=== PATIENT | male | born 1970 | race Caucasian/White ===

== ENCOUNTER → 2017-12-25 | Outpatient (CLI) | payer MEDICAID, OTHER ==
[2015-11-10 16:56] VITALS: BP 110/70
[2017-12-25 06:41] LABS: BILIRUBIN,URINE NEGATIVE (NEGATIVE); BLOOD/HEMOGLOBIN,URINE 3+ (NEGATIVE); GLUCOSE, URINE NEGATIVE (NEGATIVE); KETONES,URINE NEGATIVE (NEGATIVE); LEUKOCYTE ESTERASE ,URINE NEGATIVE (NEGATIVE); NITRITES,URINE NEGATIVE (NEGATIVE); PROTEIN,URINE 1+ (NEGATIVE); UROBILINOGEN,URINE NORMAL (NORMAL)
[2017-12-25 06:44] LABS: BASOPHILS % (AUTO) 0.4 % (0.2-1.0); EOSINOPHILS # (AUTO) 0.1 x10^3/uL (0.0-0.2); EOSINOPHILS % (AUTO) 1.8 % (0.9-2.9); HEMATOCRIT 42.6 % (42.0-54.0); HEMOGLOBIN 14.7 g/dL (13.5-18.0); LYMPHOCYTES # (AUTO) 3.4 X10^3/uL (1.3-2.9); LYMPHOCYTES % (AUTO) 44.5 % (21.0-51.0); MEAN CORPUSCULAR HEMOGLOBIN 33.8 pg (27.0-34.0); MEAN CORPUSCULAR HGB CONC 34.5 g/dL (33.0-35.0); MEAN PLATELET VOLUME 8.4 fL (7.4-11.0); MONOCYTES # (AUTO) 0.4 x10^3/uL (0.3-0.8); MONOCYTES % (AUTO) 5.8 % (0.0-13.0); NEUTROPHILS # (AUTO) 3.6 x10^3/uL (2.2-4.8); NEUTROPHILS % (AUTO) 47.5 % (42.0-75.0); PLATELET COUNT 216 X10^3/uL (150.0-450.0); RED BLOOD COUNT 4.34 X10^6/uL (4.7-6.0); RED CELL DISTRIBUTION WIDTH 13.3 % (11.6-16.5); WHITE BLOOD COUNT 7.6 X10^3/uL (3.6-10.0)
[2017-12-25 06:48] LABS: APPEARANCE,URINE CLEAR (CLEAR); BACTERIA,URINE NEGATIVE /HPF (NEGATIVE); COLOR,URINE YELLOW (YELLOW); MUCUS,URINE FEW /HPF (NEGATIVE); SQUAMOUS EPITHELIAL CELL,UR RARE /HPF (NEGATIVE)
[2017-12-25 07:03] LABS: ALANINE AMINOTRANSFERASE 35 Units/L (12-78); ALBUMIN 3.7 g/dL (3.4-5.0); ALKALINE PHOSPHATASE 62 Units/L (46-116); ASPARTATE AMINO TRANSFERASE 19 Units/L (15-37); BLOOD UREA NITROGEN 16 mg/dL (7-18); CARBON DIOXIDE 26.6 mmol/L (21-32); CHLORIDE 106 mmol/L (98-107); CREATININE 1.11 mg/dL (0.70-1.30); SODIUM 141 mmol/L (136-145); TOTAL PROTEIN 7.4 g/dL (6.4-8.2); eGFR BLACK RACES > 60 (>60); eGFR NON BLACK RACES > 60 (>60)
[2017-12-25 07:05] LABS: TOTAL PSA 1.26 ng/mL (0.13-4.0)
== END ==
LOC: LAB 04:51
PROVIDERS: ATTEND Internal Medicine
DX: N39.0 Urinary tract infection, site not specified (principal); N40.1 Benign prostatic hyperplasia with lower urinary tract symptoms
CPT/HCPCS: 36415; 80053; 81001; 84153; 85025; 87086

== ENCOUNTER → 2017-12-26 | Outpatient (CLI) | payer OTHER ==
[2015-11-10 16:56] VITALS: BP 110/70
--- NOTE | 2017-12-26 13:04 | RAD ---
STUDY: CERVICAL SPINE 3 VIEWS History: Low back pain, neck pain, degenerative disc disease. Comparison: None. Findings: Vertebral body heights and alignment are within normal limits. There is no evidence of acute fracture or subluxation. Intervertebral disk spaces are fairly well preserved. There is no significant prever tebral soft tissue swelling. The lateral masses of C1 and the C1/C2 relationship are normal. The odon toid process is intact. IMPRESSION: 1. No evidence of acute osseous injury to the cervical spine. Reported By:
--- NOTE | 2017-12-26 13:14 | RAD ---
HISTORY: Low back pain. Neck pain. Degenerative disc disease. Study: Lumbar spine three views Comparison: April 11, 2015. Findings: There is no evidence of acute fracture or subluxation. 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 Vertebral body heights and alignment are within normal limits. Intervertebral disc spaces are well preserved. The spinous process are intact. Ther e is no significant facet arthropathy. No significant soft tissue abnormalities are identified. IMPRESSION: 1. No evidence of acute osseous injury to the lumbar spine. 2. Postsurgical change at L5/S1. Reported By:
== END | disposition home or self-care (01) | DRG 552 ==
LOC: RAD 12:34
PROVIDERS: ATTEND Internal Medicine
DX: M54.5 Low back pain (principal); M51.36 Other intervertebral disc degeneration, lumbar region
CPT/HCPCS: 72040; 72100